=== PATIENT | female | born 1940 | race Caucasian/White ===

== ENCOUNTER → 2016-03-09 | Outpatient (CLI) | payer OTHER, BC ==
[~2016-03-09] MED LIST: ASPIRIN325 PO; ATORVASTATIN CA40 MG PO; BENICAR; BENICAR20 MG PO; GLUCOPHAGE500 MG PO; HYDROCODON-ACE1 EAC7 PO; LEVAQUIN 500 M500 MG PO; LIPITOR; NOHOMEMEDICATIONS; PLAVIX 75 MG TA75 MG PO; TOPROL XL50 MG PO; ZETIA10 MG PO
--- NOTE | ~2016-03-09 | 2DMMODE ---
[facility] [place] [address] 2 D/M-MODE ECHOCARDIOGRAM Name: ROCCO FRAGA Room #: REG [facility]#: [id number] Admission: 03/09/16 Attend Phys: Yuan Sandoval MD Discharge: Date of : 42 Date of Service: 03/09/16 0858 Report #: [id number] THIS REPORT FOR: //name// Transthoracic Echocardiography Ordering physician: Yuan Sandoval MD Referring physician: Adrienne Olea MD Chiller Hand: Emiliana Smith Indications/History: CAD. Hx: Stent, HTN, HLP, DM BP: 162 / HR: 58bpm Height: 65in Weight: 184.6lb 83 Study data: M-mode, complete 2D, complete spectral Doppler, and color Doppler. Location: Echo laboratory. Routine. Image quality was adequate. 2D measurements Normal Normal LVID ED 49.1mm 36-57 IVS ED 8.6mm 6-11 LVID ES 29.9mm 23-40 LVPW ED 8.9mm 6-11 LA volume 29ml/m2 16-28 AoRoot diam 34.2mm 21-37 index ED LVOT diameter 20mm 18-23 Findings: Left ventricle: The cavity size was normal. Wall thickness was normal. Systolic function was normal. The estimated ejection fraction was in the range of 55% to 60%. Wall motion was normal. Right ventricle: The cavity size was normal. Systolic function was normal. Right atrium: The atrium was normal in size. Left atrium: The atrium was normal in size. Volume index: 29ml/m2 (S). Aortic valve: Mildly sclerotic leaflets. Doppler: There was no stenosis. Mild regurgitation. Peak velocity: 155.5cm/s (S). [address] [address] 2 D/M-MODE ECHOCARDIOGRAM Name: ROCCO FRAGA Room #: REG [facility] M.R.#: [id number] Admission: 03/09/16 Attend Phys: Yuan Sandoval MD Discharge: Date of : 42 Date of Service: 03/09/16 0858 Report #: [id number] Mitral valve: Structurally normal valve. Doppler: There was no evidence for stenosis. Mild to moderate regurgitation. Peak E-wave velocity: 84.8cm/s. Peak gradient: 2.9mm Hg (D). Peak A-wave velocity: 136.5cm/s. Tricuspid valve: Structurally normal valve. Doppler: There was no evidence for stenosis. Trivial regurgitation. Regurgitant peak velocity: 244.5cm/s. Peak RV-RA gradient: 24mm Hg (S). Pulmonic valve: Structurally normal valve. Doppler: There was no evidence for stenosis. Trivial regurgitation. Pericardium: There was no pericardial effusion. Aorta: Aortic root: The aortic root was normal in size. Pulmonary artery: Systolic pressure was estimated to be 30mm Hg. Diastolic function: Doppler parameters are consistent with abnormal left ventricular relaxation (grade 1 diastolic dysfunction). Systemic veins: Inferior vena cava: The vessel was normal in size; the respirophasic diameter changes were in the normal range (= 50%). Conclusions 1. Left ventricle: Systolic function was normal. The estimated ejection fraction was in the range of 55% to 60%. Wall motion was normal. Doppler parameters are consistent with abnormal left ventricular relaxation (grade 1 diastolic dysfunction). 2. Aortic valve: Mildly sclerotic leaflets. There was no stenosis. Mild regurgitation. 3. Mitral valve: Structurally normal valve. Mild to moderate regurgitation. 4. Pulmonary arteries: Systolic pressure was estimated to be 30mm Hg. 5. Pericardium, extracardiac: There was no pericardial effusion. <ELECTRONICALLY SIGNED> By: Ga Mayberry MD, [facility] 03/09/1644 0858 3 Ga Mayberry MD, [facility] /elda
== END ==
LOC: CV 08:26
DX: I25.10 Atherosclerotic heart disease of native coronary artery without angina pectoris (principal); I10 Essential (primary) hypertension; E78.5 Hyperlipidemia, unspecified; E11.9 Type 2 diabetes mellitus without complications

== ENCOUNTER → 2017-04-01 | Outpatient (CLI) | payer OTHER, BC | LOC: NUC 03-01 14:07 | DX: I25.10 Atherosclerotic heart disease of native coronary artery without angina pectoris (principal); I10 Essential (primary) hypertension; E11.9 Type 2 diabetes mellitus without complications; E78.5 Hyperlipidemia, unspecified ==

== ENCOUNTER 2018-04-27 16:48 | Emergency (ER) | payer OTHER, BC ==
[~2018-04-27] VITALS: Ht 167.6 cm; Wt 81.7 kg
[2018-04-27 17:41] LABS: ABSOLUTE NEUTROPHILS 6.3 thou/uL (1.4-8.2); BASOPHILS 0.8 % (0.0-2.0); EOSINOPHILS 1.5 % (0.0-3.0); HEMATOCRIT 37.3 % (37.0-47.0); HEMOGLOBIN 12.3 gm/dL (12.0-15.0); LYMPHOCYTES 18.6 % (24.0-44.0); MCH 27.3 pg (26.0-34.0); MCV 82.7 fL (80.0-100.0); MONOCYTES 5.3 % (1.0-8.0); PLATELET COUNT 395 thou/uL (150-400); POLYS 73.8 % (36.0-66.0); RBC 4.51 mil/uL (4.20-5.00); RDW 14.9 % (10.5-14.5); WBC 8.5 thou/uL (4.0-11.0)
[2018-04-27 17:59] LABS: URINE BILIRUBIN NEGATIVE (Negative); URINE BLOOD 1+ (Negative); URINE CLARITY CLEAR; URINE COLOR YELLOW; URINE GLUCOSE-RANDOM* NEGATIVE (Negative); URINE KETONES NEGATIVE (Negative); URINE LEUKOCYTES 2+ (Negative); URINE NITRITE NEGATIVE (Negative); URINE PROTEIN (DIPSTICK) NEGATIVE (Negative); URINE SPECIFIC GRAVITY >= 1.030 (1.005-1.035); URINE UROBILINOGEN 0.2 E.U./dl (0.2-1.0)
[2018-04-27 18:00] LABS: CALCIUM 9.4 mg/dL (8.5-10.1); POTASSIUM 4.5 mmol/L (3.5-5.1)
[2018-04-27 18:05] LABS: ALBUMIN 3.8 g/dL (3.4-5.0); TOTAL BILIRUBIN 0.5 mg/dL (<0.1-1.0); TOTAL PROTEIN 7.7 g/dL (6.4-8.2)
[2018-04-27 18:09] LABS: CASTS None Seen /LPF (None Seen); CRYSTALS None Seen /LPF (None Seen); SQUAMOUS 4-10 Moderate /LPF (0-3); URINE RBC 0-2 Rare /HPF (0-2)
[2018-04-27] MEDS ORDERED: VENTOLIN HFA 1818 GM INH (18:48)
[2018-04-27] MEDS ORDERED: DOXYCYCLINE 10100 MG PO (18:48)
[2018-04-27 19:30] VITALS: BP 108/58
--- NOTE | 2018-04-28 07:54 | EKG ---
[place] [address] [facility] [place] [address] ELECTROCARDIOGRAM REPORT Name: ROCCO FRAGA Room #: DEP [facility]#: [id number] ������������������ Admission: 04/27/18 ������������������ Attend Phys: Discharge: 04/27/18 ������������������ Date of : 42 Report #: [id number] ����������������������������������������������������������������� [id number] THIS REPORT FOR: //name// [facility] ED Test Date: 2018-04-27 Test Time: 18:15:16 Pat Name: ROCCO FRAGA Department: Room: Gender: F Kennel Operator: : 1940 Requested By: Idania Burnett Order Number: [id number] MD: Ga Mayberry Measurements Intervals [place] Rate: 72 P: 20 FL: 149 QRS: -31 QRSD: 95 T: 9 QT: 404 QTc: 443 Interpretive Statements Sinus rhythm Left axis deviation Abnormal R-wave progression, late transition Compared to ECG 10/09/2012 13:58:13 Left-axis deviation now present Electronically Signed On 04-28-2018 7:54:09 CDT by Ga Mayberry [email or web address] ��������������������������������������������� <ELECTRONICALLY SIGNED> ���������������������������������������� By: Ga Mayberry MD, [facility] ��������������������������������������������� 04/28/18 0754 1815 181 Ga Mayberry MD, [facility] /EPI
== END 2018-04-27 19:31 | disposition home or self-care (01) ==
LOC: ER 16:48
PROVIDERS: Student in an Organized Health Care Education/Training Program
DX: J18.9 Pneumonia, unspecified organism (principal); N39.0 Urinary tract infection, site not specified; E11.9 Type 2 diabetes mellitus without complications; Z95.5 Presence of coronary angioplasty implant and graft

== ENCOUNTER → 2018-06-09 | Outpatient (CLI) | payer OTHER, BC ==
[~2018-06-09] MED LIST changes: +DOXYCYCLINE 10100 MG PO; +VENTOLIN HFA 1818 GM INH
== END ==
LOC: RAD 10:02
DX: J98.4 Other disorders of lung (principal); R93.89 Abnormal findings on diagnostic imaging of other specified body structures

== ENCOUNTER → 2018-11-07 | Outpatient (CLI) | payer OTHER, BC ==
--- NOTE | 2018-11-07 14:50 | 2DMMODE ---
[facility] [place] [address] 2 D/M-MODE ECHOCARDIOGRAM Name: ROCCO FRAGA Room #: REG [facility]#: [id number] Admission: 11/07/18 Attend Phys: Yuan Sandoval MD Discharge: Date of : 42 Report #: [id number] THIS REPORT FOR: //name// APPROVED REPORT Study performed: 11/07/2018 13:57:55 EXAM: Comprehensive 2D, Doppler, and color-flow Echocardiogram Patient Location: Out-Patient Status: routine BSA: 1.90 HR: 79 bpm BP: 118/60 mmHg Rhythm: NSR Other Information Study Quality: Good Indications CAD HTN 2D Dimensions RVDd: 26.76 mm IVSd: 11.07 (7-11mm) LVOT Diam: 20.41 (18-24mm) LVDd: 49.76 mm PWd: 9.50 (7-11mm) Ascending Ao: 38.50 (22-36mm) LVDs: 33.60 (25-40mm) Aortic Root: 35.24 mm Volumes Left Atrial Volume (Systole) Single Plane 4CH: 56.90 mL Single Plane 2CH: 58.43 mL LA ESV Index: 33.00 mL/m2 Aortic Valve AoV Peak Arnulfo.: 1.92 m/s AO Peak Gr.: 14.74 mmHg LVOT Max P.99 mmHg LVOT Max V: 1.22 m/s SHITAL Vmax: 2.09 cm2 Mitral Valve E/A Ratio: 0.5 MV Decel. Time: 347.71 ms [facility] [address] [address] 2 D/M-MODE ECHOCARDIOGRAM Name: ROCCO FRAGA Room #: REG CL [facility]#: [id number] Admission: 11/07/18 Attend Phys: Yuan Sandoval MD Discharge: Date of : 42 Report #: [id number] MV E Max Arnulfo.: 0.64 m/s MV A Arnulfo.: 1.17 m/s MV PHT: 100.84 ms IVRT: 87.66 ms Pulmonary Valve PV Peak Arnulfo.: 1.45 m/s PV Peak Gr.: 8.35 mmHg Pulmonary Vein P Vein S: 0.85 m/s P Vein D: 0.39 m/s P Vein S/D Ratio: 2.18 Tricuspid Valve TR Peak Arnulfo.: 2.77 m/s RAP Estimate: 5.00 mmHg TR Peak Gr.: 30.73 mmHg PA Pressure: 36.00 mmHg Left Ventricle The left ventricle is normal size. There is normal LV segmental wall motion. There is normal left ventricular wall thickness. Left ventricular systolic function is normal. LVEF is 55-60%. Mild diastolic dysfunction is present (impaired relaxation pattern). Right Ventricle The right ventricle is normal size. The right ventricular systolic function is normal. Atria Left atrium is at the upper limits of normal. The right atrium size is normal. Aortic Valve Aortic valve is calcified. Mild aortic regurgitation. There is no aortic valvular stenosis. Mitral Valve The mitral valve is normal in structure. Mild mitral regurgitation. Tricuspid Valve The tricuspid valve is normal in structure. Trace tricuspid regurgitation. Estimated PAP is 35-40mmHg. Pulmonic Valve [facility] [address] [place] [address] 2 D/M-MODE ECHOCARDIOGRAM Name: ROCCO FRAGA Room #: REG [facility]#: [id number] Admission: 11/07/18 Attend Phys: Yuan Sandoval MD Discharge: Date of : 42 Report #: [id number] The pulmonary valve is normal in structure. Trace pulmonic regurgitation. Great Vessels The aortic root is normal in size. The ascending aorta is mildly dilated at 3.9cm. IVC is normal in size and collapses >50% with inspiration. Pericardium There is no pericardial effusion. <Conclusion> The left ventricle is normal size. There is normal left ventricular wall thickness. Left ventricular systolic function is normal. Mild diastolic dysfunction is present (impaired relaxation pattern). The right ventricle is normal size. Left atrium is at the upper limits of normal. Aortic valve is calcified. Mild aortic regurgitation. Mild mitral regurgitation. Trace tricuspid regurgitation. Estimated PAP is 35-40mmHg. <ELECTRONICALLY SIGNED> By: Yuan Sandoval MD 11/07/181449 49 49 Yuan Sandoval MD /INF
== END ==
LOC: CV 12:34
DX: I08.0 Rheumatic disorders of both mitral and aortic valves (principal); I25.10 Atherosclerotic heart disease of native coronary artery without angina pectoris; I10 Essential (primary) hypertension

== ENCOUNTER → 2019-03-14 | Outpatient (CLI) | payer OTHER, BC | LOC: RAD 11:16 | DX: J84.9 Interstitial pulmonary disease, unspecified (principal); M06.9 Rheumatoid arthritis, unspecified; Z88.8 Allergy status to other drugs, medicaments and biological substances ==

== ENCOUNTER 2019-06-18 20:20 | Emergency (ER) | payer OTHER, BC ==
[~2019-06-18] VITALS: Ht 167.6 cm; Wt 73.5 kg
[2019-06-18 20:46] LABS: ABSOLUTE NEUTROPHILS 4.1 thou/uL (1.4-8.2); BASOPHILS 0.8 % (0.0-2.0); EOSINOPHILS 2.2 % (0.0-3.0); HEMATOCRIT 36.8 % (37.0-47.0); HEMOGLOBIN 12.3 gm/dL (12.0-15.0); LYMPHOCYTES 29.4 % (24.0-44.0); MCH 29.3 pg (26.0-34.0); MCHC 33.3 g/dL (28.0-37.0); MCV 88.2 fL (80.0-100.0); MONOCYTES 5.3 % (1.0-8.0); PLATELET COUNT 288 thou/uL (150-400); POLYS 62.3 % (36.0-66.0); RBC 4.18 mil/uL (4.20-5.00); WBC 6.6 thou/uL (4.0-11.0)
[2019-06-18 20:59] LABS: ANION GAP 7 mmol/L (7-16); BUN 25 mg/dL (7-18); CHLORIDE 99 mmol/L (98-107); CO2 27 mmol/L (21-32); CREATININE 1.1 mg/dL (0.6-1.0); GLUCOSE 127 mg/dL (74-106); POTASSIUM 4.4 mmol/L (3.5-5.1); SODIUM 133 mmol/L (136-145)
[2019-06-18 21:09] LABS: ALBUMIN 3.7 g/dL (3.4-5.0); SGOT 20 U/L (15-37); SGPT 25 U/L (30-65); TOTAL BILIRUBIN 0.5 mg/dL (<0.1-1.0); TROPONIN-I <0.06 ng/mL (<0.06)
[2019-06-18 22:28] VITALS: BP 145/56
--- NOTE | 2019-06-19 09:01 | EKG ---
[facility] [place] [address] ELECTROCARDIOGRAM REPORT Name: ROCCO FRAGA Room #: DEP [facility].#: [id number] Admission: 06/18/19 Attend Phys: Discharge: 06/18/19 Date of : 42 Report #: [id number] THIS REPORT FOR: cc: Adrienne Olea DNP, Mary E. DNP Couchonnal, Luis F. MD ~ THIS REPORT FOR: //name// [facility] ED Test Date: 2019-06-18 Test Time: 20:43:06 Pat Name: ROCCO FRAGA Department: Room: Gender: F Professional Programmer Analyst: karenutmirna : 1940 Requested By: Sterling Yanes Order Number: [id number] MD: Boogie Zuleta Measurements Intervals [place] Rate: 65 P: 18 UT: 139 QRS: -33 QRSD: 96 T: 25 QT: 416 QTc: 433 Interpretive Statements Sinus rhythm Left axis deviation Abnormal R-wave progression, late transition Compared to ECG 04/27/2018 18:15:16 No significant changes Electronically Signed On 06-19-2019 8:59:33 CDT by Boogie Zuleta [email or web address] <ELECTRONICALLY SIGNED> By: Boogie Zuleta MD 06/19/19 0859 42 42 Boogie Zuleta MD /EPI
== END 2019-06-18 22:28 | disposition home or self-care (01) ==
LOC: ER 20:20
PROVIDERS: Emergency Medicine
DX: R42 Dizziness and giddiness (principal); R06.02 Shortness of breath; R07.89 Other chest pain; R05 Cough; E11.9 Type 2 diabetes mellitus without complications; M06.9 Rheumatoid arthritis, unspecified; Z79.899 Other long term (current) drug therapy; Z79.82 Long term (current) use of aspirin; Z98.890 Other specified postprocedural states; Z98.41 Cataract extraction status, right eye; Z98.42 Cataract extraction status, left eye

== ENCOUNTER → 2019-06-26 | Outpatient (CLI) | payer OTHER, BC ==
[~2019-06-26] MED LIST changes: +ASA81BEC PO; +CLOPIDOGREL75 MG PO; +IMURAN 50MG TAB50 M1 PO; +LIPITOR 20 MG T20 M1 PO; +METFORMIN HCL500 M3 PO; +PROAIR HFA8.5 GM INH
== END ==
LOC: SJCVC 13:37
PROVIDERS: ATTEND Internal Medicine Cardiovascular Disease
DX: I49.1 Atrial premature depolarization (principal); I25.10 Atherosclerotic heart disease of native coronary artery without angina pectoris; E78.00 Pure hypercholesterolemia, unspecified; I10 Essential (primary) hypertension; E11.9 Type 2 diabetes mellitus without complications; R60.9 Edema, unspecified; M06.9 Rheumatoid arthritis, unspecified; M19.90 Unspecified osteoarthritis, unspecified site; Z82.49 Family history of ischemic heart disease and other diseases of the circulatory system; Z79.899 Other long term (current) drug therapy; Z79.84 Long term (current) use of oral hypoglycemic drugs

== ENCOUNTER → 2019-07-13 | Outpatient (CLI) | payer OTHER, BC ==
[~2019-07-13] MED LIST changes: -ASA81BEC PO; -CLOPIDOGREL75 MG PO; -IMURAN 50MG TAB50 M1 PO; -LIPITOR 20 MG T20 M1 PO; -METFORMIN HCL500 M3 PO; -PROAIR HFA8.5 GM INH
== END ==
LOC: SJCVCIMAG 06-30 13:17
DX: I25.10 Atherosclerotic heart disease of native coronary artery without angina pectoris (principal); I49.3 Ventricular premature depolarization; E11.9 Type 2 diabetes mellitus without complications; I10 Essential (primary) hypertension; E78.00 Pure hypercholesterolemia, unspecified; Z79.899 Other long term (current) drug therapy

== ENCOUNTER 2019-07-20 06:29 | Observation (INO) | payer OTHER, BC ==
[~2019-07-20] VITALS: Ht 167.6 cm; Wt 71.1 kg
--- NOTE | ~2019-07-20 | EKG ---
[facility] [place] [address] ELECTROCARDIOGRAM REPORT Name: ROCCO FRAGA Room #: 201-[facility] M.R.#: [id number] Admission: 07/20/19 Attend Phys: Yuan Sandoval MD Discharge: Date of : 42 Report #: [id number] THIS REPORT FOR: cc: Adrienne Olea DNP, Mary E. DNP Epiphany, Epiphany MD ~ THIS REPORT FOR: //name// [facility] Test Date: 2019-07-21 Test Time: 07:08:07 Pat Name: ROCCO FRAGA Department: Room: 201 Gender: F Scraper Tender: Rudy LYLES : 1940 Requested By: Yuan Sandoval Order Number: [id number] MD: Measurements Intervals [place] Rate: 68 P: 19 ME: 144 QRS: -32 QRSD: 95 T: 2 QT: 397 QTc: 423 Interpretive Statements Sinus rhythm Left axis deviation Compared to ECG 07/20/2019 10:05:32 Left-axis deviation now present Myocardial infarct finding no longer present [email or web address] By: 0708 7 Epiphany Epiphany, /EPI
[2019-07-20 07:15] VITALS: BP 122/55
[2019-07-20] MEDS ORDERED: PROAIR HFA8.5 GM INH (07:36)
[2019-07-20] MEDS ORDERED: ASA81BEC PO (07:37)
[2019-07-20] MEDS ORDERED: IMURAN 50MG TAB50 M1 PO (07:38)
[2019-07-20] MEDS ORDERED: LIPITOR 20 MG T20 M1 PO (07:38)
[2019-07-20] MEDS ORDERED: METFORMIN HCL500 M3 PO (07:39)
[2019-07-20] MEDS ORDERED: BENICAR20 MG PO (07:40)
--- NOTE | 2019-07-20 08:48 | EKG ---
[facility] [place] [address] ELECTROCARDIOGRAM REPORT Name: ROCCO FRAGA Room #: REG [facility]#: [id number] Admission: 07/20/19 Attend Phys: Yuan Sandoval MD Discharge: Date of : 42 Report #: [id number] THIS REPORT FOR: cc: Adrienne Olea DNP, Mary E. DNP Lundgren, Craig H. MD [facility] ~ THIS REPORT FOR: //name// [facility] Test Date: 2019-07-20 Test Time: 07:10:21 Pat Name: ROCCO FRAGA Department: Room: Gender: F Copy Camera Operator: [facility] : 1940 Requested By: Yuan Sandoval Order Number: [id number] MD: Ga Mayberry Measurements Intervals [place] Rate: 68 P: 22 MO: 142 QRS: -29 QRSD: 97 T: 10 QT: 412 QTc: 439 Interpretive Statements Sinus rhythm Poor R wave progression Compared to ECG 06/18/2019 20:43:06 No significant changes Electronically Signed On 07-20-2019 8:46:48 CDT by Ga Mayberry [email or web address] <ELECTRONICALLY SIGNED> By: Ga Mayberry MD, FACC 07/20/19 0846 0710 0710 Ga Mayberry MD, [facility] /EPI
--- NOTE | 2019-07-20 13:35 | CATHLAB ---
[facility] [place] [address] INVASIVE PROCEDURE REPORT Name: ROCCO FRAGA Room #: 201-P [facility] M.R.#: [id number] Admission: 07/20/19 Attend Phys: Yuan Sandoval MD Discharge: Date of : 42 Report #: [id number] THIS REPORT FOR: cc: Adrienne Olea DNP, Mary E. DNP Park, Jin S. MD ~ APPROVED REPORT Study performed: 07/20/2019 07:45:41 Patient Details Patient Status: Out-Patient Room #: The patient is a 78 year-old female Event Personnel Yuan Sandoval Gyn, Binh Porter RN RN, Arianna Porras RN RN, Dianna Chiu RTR, Arsalan Mejia Sherra RTR Monitor Procedures Performed Art Access - R femoral artery* Left Heart Cath w/or w/o Coronaries [id number] [facility] [address] Place w/wo Plasty Single PDA 134213 32397 Initial Mod Sed Same Phys/QHP Gr5y 144770 00802 Mod Sed Same Phys/QHP Ea 550112 Hemostasis w/ Mynx Indication Dyspnea, Positive stress test, Chest pain Risk Factors Hypercholesterolemia, Coronary Artery DiseaseHypertension, Diabetes Previous Procedures/Diagnoses Previous PCI Procedure Narrative The Right Groin^ was infiltrated with 1% Lidocaine subcutaneous anesthesia. A PINNACLE 4FR Sheath #[id number] sheath was inserted into the RFA^. Coronary angiography was performed using coronary diagnostic catheters. The right coronary system was accessed and visualized with a JR4 catheter. The left coronary system was accessed and visualized with a JL4 catheter. The left ventricle was accessed and visualized with a PIGTAIL catheter. Pre-demployment femoral angiogram was performed . Closure device was deployed with a 6 Fr MYNXGRIP 6/7F #[id number]. The patient tolerated the procedure well and [facility] [place] [address] INVASIVE PROCEDURE REPORT Name: ROCCO FRAGA ANDREA Room #: 201-P [facility] ..#: [id number] Admission: 07/20/19 Attend Phys: Yuan Sandoval MD Discharge: Date of : 41 Report #: [id number] there were no complications associated with the procedure. There was no hematoma. Intraoperative Conscious Sedation Sedation start time: 817 Case end Time: 929 Fentanyl 75 mcg Versed 1.5 mg Fluoro Time: 16.52 minutes Dose: DAP 59363.90 cGycm2 2032 mGy Contrast Type and Amount: Omnipaque 255 ml Coronary Angiography The patient's coronary anatomy is right dominant. Diagnostic Cath Left Main The left main artery is a large-caliber vessel, with no flow-limiting lesions. LAD The LAD has a stent in the proximal segment, widely patent with minimal restenosis. There is a mild to moderate lesion in the mid LAD. Diagonal 1 This is a small to moderate-sized caliber vessel, patent with no flow-limiting lesions. Circumflex Supplies 2 OM vessels. OM1 This is a small to moderate-sized caliber vessel, mild disease proximally. OM2 This is a moderate-sized caliber vessel, with a mild to moderate stenosis in the proximal segment, 30 to 40%. Right Coronary The RCA is a dominant vessel with mild disease in the proximal segment, 30%. R PDA There is a severe occlusion in the proximal segment, 80%. RPLV There is a mild stenosis in the proximal segment, 30%. Left Ventriculography Left Ventriculography was not performed. Ejection Fraction was 55-60% based off patient's Nuclear Cardiac Stress Test. An LVEDP was measured and there is no gradient across the outflow tract. Hemodynamics The aortic pressure is 131/56 mmHg with a mean of 46 mmHg. The left ventricular pressure is 123/6 mmHg with a mean of mmHg. The left ventricular end diastolic pressure is 17 mmHg. PCI Technique Lesion Percutaneous coronary intervention was performed on the right [facility] [address] [place] [address] INVASIVE PROCEDURE REPORT Name: ROCCO FRAGA ANDREA Room #: 201-P [facility] IN M.R.#: [id number] Admission: 07/20/19 Attend Phys: Yuan Sandoval MD Discharge: Date of : 42 Report #: [id number] posterior descending artery. The lesion stenosis prior to intervention was 80% with JERRI 3 flow. A VISTA 6FR JR 4 #[id number] Guide Catheter was used to engage the ostium. A Luge Wire .014 x 182CM #[id number] Interventional Guidewire was used to cross the lesion. BALLOON DILATION A Balloon catheter Euphora RX 2.0 x12 #[id number] was inserted and inflated up to 8.00atm for 26seconds. Additional Inflation: 8.00atm for 11seconds. Additional Inflation: 8.00atm for 11seconds. ADDITIONAL INFLATION AND TIME 16 JERRY/14 SECS, 16 JERRY/14 SECS STENT DEPLOYMENT A drug-eluting stent RESOLUTE MARTÍN RX 2.25 X 15 #[id number] was inserted and inflated up to 12.00atm for 18seconds. Final angiography reveals 5 % stenosis with JERRI 3 flow. Conclusion 1. Successful insertion of a drug-eluting stent into the PDA. 2. There is a patent stent in the proximal LAD. 3. There is mild to moderate disease in the mid LAD, OM 2 and proximal RCA. 4. Normal LV systolic function. 5. Recommend dual antiplatelet therapy and aggressive risk factor management. <ELECTRONICALLY SIGNED> By: Yuan Sandoval MD 07/20/19 1333 1333 1333 Yuan Sandoval MD /INF
[2019-07-20 13:45] VITALS: BP 106/49
--- NOTE | 2019-07-20 13:52 | NUR ---
REC PT FROM PRODUCT DEVELOPMENT MANAGER, RN GAVE ME BEDSIDE REPORT I'D BEEN AT LUNCH. PT IS A&0X4, AMBULATORY, HAS FINISHED RESTRICTIONS AND IVF. R GROIN SITE STENTED X1, MYNX, CDI, SOFT, NO BLEEDING. GAVE INTRO TO ROOM AND CALL LIGHT. OFFERED TO CALL FOR A PLATE OF FOOD SHE DECLINES; ADMISISON WILL BE DONE BY ANOTHER RN. SEE SEPARATE INTERVENTIONS FOR ASSESSMENTS
--- NOTE | 2019-07-20 16:09 | EKG ---
[facility] [place] [address] ELECTROCARDIOGRAM REPORT Name: ROCCO FRAGA Room #: 201-P [facility] M.R.#: [id number] Admission: 07/20/19 Attend Phys: Yuan Sandoval MD Discharge: Date of : 42 Report #: [id number] THIS REPORT FOR: cc: Adrienne Olea DNP, Mary E. DNP Couchonnal, Luis F. MD ~ THIS REPORT FOR: //name// [facility] Test Date: 2019-07-20 Test Time: 10:05:32 Pat Name: ROCCO FRAGA Department: Room: [facility] Gender: F Missile Inspector: [facility] : 1940 Requested By: Yuan Sandoval Order Number: [id number] MD: Boogie Zuleta Measurements Intervals [place] Rate: 68 P: 23 W[place]: 162 QRS: -38 QRSD: 99 T: 23 QT: 406 QTc: 432 Interpretive Statements Sinus rhythm Abnormal R-wave progression, late transition Inferior infarct, old Compared to ECG 07/20/2019 07:10:21 Myocardial infarct finding now present Poor R-wave progression no longer present Electronically Signed On 07-20-2019 16:06:58 CDT by Boogie Zuleta [email or web address] <ELECTRONICALLY SIGNED> By: Boogie Zuleta MD 07/20/19 1606 1005 1005 Boogie Zuleta MD /EPI
[2019-07-20 19:18] VITALS: BP 105/47
[2019-07-21 00:06] VITALS: BP 99/48
[2019-07-21 03:47] VITALS: BP 103/47
--- NOTE | 2019-07-21 04:40 | NUR ---
PT ALERT AND ORIENTED. VSS. RIGHT GROIN SITE S/P CARDIAC CATH CLEAN DRY AND INTACT. MINIMAL PAIN 3/10 REPORTED. NO HEMATOMA. NO NAUSEA OR CHEST PAIN REPORTED. SB/ST ON THE MONITOR. STEADY WITH AMBULATION. NO FURTHER CONCERNS. PT ANTICIPATE TO DC THIS AM. WILL CONTINUE TO FOLLOW POC.
[2019-07-21 05:30] LABS: HEMATOCRIT 31.3 % (37.0-47.0); HEMOGLOBIN 10.5 gm/dL (12.0-15.0); MCHC 33.4 g/dL (28.0-37.0); MCV 89.9 fL (80.0-100.0); RBC 3.48 mil/uL (4.20-5.00); RDW 18.1 % (10.5-14.5)
[2019-07-21 07:00] LABS: ALBUMIN 2.9 g/dL (3.4-5.0); CALCIUM 8.6 mg/dL (8.5-10.1); POTASSIUM 4.4 mmol/L (3.5-5.1); TOTAL BILIRUBIN 0.5 mg/dL (0.2-1.0); TOTAL PROTEIN 6.2 g/dL (6.4-8.2)
[2019-07-21 07:20] VITALS: BP 133/62
--- NOTE | 2019-07-21 08:20 | NUR ---
chart review, possible dc home today, had cath yesterday. cm visited with amanda via phone call, she denied "any needs, independent. my daughter will be picking me up today"/amanda. will cont following as needed for dc needs.
[2019-07-21] MEDS ORDERED: CLOPIDOGREL75 MG PO (09:02)
[2019-07-21 09:46] VITALS: BP 133/62
--- NOTE | 2019-07-21 09:49 | NUR ---
ASSUMED CARE AT SHIFT CHANGE. ALERT X4, DENIES SOB, DENIES CHEST PAIN, RIGHT GROIN SIGHT C/D/I, CARDIAC REHAB NURSE ROUNDED AND PROVIDED POST STENT EDUCATIONS. NSR/SB ON TELE. DC PAPERWORK REVIEWED. IV AND TELE REMOVE. DC HOME WITH SELF CARE.
== END 2019-07-21 10:20 | disposition home or self-care (01) ==
LOC: CATH 06:29 → 2N 13:33 → CATH 14:23 → 2N 07-21 10:20
PROVIDERS: ADMIT Internal Medicine Cardiovascular Disease
DX: I25.110 Atherosclerotic heart disease of native coronary artery with unstable angina pectoris (principal); E11.9 Type 2 diabetes mellitus without complications

== ENCOUNTER → 2019-08-02 | Outpatient (CLI) | payer OTHER, BC ==
[~2019-08-02] MED LIST changes: +ASA81BEC PO; +CLOPIDOGREL75 MG PO; +IMURAN 50MG TAB50 M1 PO; +LIPITOR 20 MG T20 M1 PO; +METFORMIN HCL500 M3 PO; +PROAIR HFA8.5 GM INH
== END ==
LOC: SJCVC 14:55
PROVIDERS: ATTEND Internal Medicine Cardiovascular Disease
DX: I49.1 Atrial premature depolarization (principal); R94.31 Abnormal electrocardiogram [ECG] [EKG]; I25.10 Atherosclerotic heart disease of native coronary artery without angina pectoris; I10 Essential (primary) hypertension; E78.00 Pure hypercholesterolemia, unspecified; R60.9 Edema, unspecified; M19.90 Unspecified osteoarthritis, unspecified site; M06.9 Rheumatoid arthritis, unspecified; E11.9 Type 2 diabetes mellitus without complications; Z98.61 Coronary angioplasty status; Z82.49 Family history of ischemic heart disease and other diseases of the circulatory system; Z79.82 Long term (current) use of aspirin; Z79.899 Other long term (current) drug therapy; Z79.84 Long term (current) use of oral hypoglycemic drugs

== ENCOUNTER → 2020-03-12 | Outpatient (CLI) | payer OTHER, BC | LOC: SJCVC 11:27 | PROVIDERS: ATTEND Internal Medicine Cardiovascular Disease | DX: R94.31 Abnormal electrocardiogram [ECG] [EKG] (principal); I25.10 Atherosclerotic heart disease of native coronary artery without angina pectoris; I10 Essential (primary) hypertension; E78.00 Pure hypercholesterolemia, unspecified; R60.9 Edema, unspecified; K21.9 Gastro-esophageal reflux disease without esophagitis; E11.9 Type 2 diabetes mellitus without complications; J84.9 Interstitial pulmonary disease, unspecified; R00.1 Bradycardia, unspecified; J32.9 Chronic sinusitis, unspecified; Z88.8 Allergy status to other drugs, medicaments and biological substances; Z79.82 Long term (current) use of aspirin; Z79.899 Other long term (current) drug therapy ==

== ENCOUNTER → 2020-09-27 | Outpatient (CLI) | payer OTHER, BC | LOC: SJCVCIMAG 09:17 | PROVIDERS: ATTEND Internal Medicine Cardiovascular Disease | DX: I08.3 Combined rheumatic disorders of mitral, aortic and tricuspid valves (principal); R00.1 Bradycardia, unspecified; I25.10 Atherosclerotic heart disease of native coronary artery without angina pectoris; E11.9 Type 2 diabetes mellitus without complications; I10 Essential (primary) hypertension; E78.5 Hyperlipidemia, unspecified ==

== ENCOUNTER → 2020-11-08 | Outpatient (CLI) | payer OTHER, BC | LOC: SJCVC 10:16 | PROVIDERS: ATTEND Internal Medicine Cardiovascular Disease | DX: E78.00 Pure hypercholesterolemia, unspecified (principal); I25.10 Atherosclerotic heart disease of native coronary artery without angina pectoris; I10 Essential (primary) hypertension; E11.9 Type 2 diabetes mellitus without complications; K21.9 Gastro-esophageal reflux disease without esophagitis; E66.9 Obesity, unspecified; Z79.84 Long term (current) use of oral hypoglycemic drugs; Z79.899 Other long term (current) drug therapy; Z79.82 Long term (current) use of aspirin; Z88.8 Allergy status to other drugs, medicaments and biological substances ==

== ENCOUNTER 2021-04-01 14:28 | Inpatient (IN) | payer OTHER, BC ==
[~2021-04-01] VITALS: Ht 167.6 cm; Wt 68.5 kg
[2021-04-01 14:34] VITALS: BP 136/66
[2021-04-01 15:01] LABS: URINE BILIRUBIN NEGATIVE (Negative); URINE BLOOD 2+ (Negative); URINE CLARITY CLEAR; URINE COLOR YELLOW; URINE GLUCOSE-RANDOM* 1+ (Negative); URINE KETONES NEGATIVE (Negative); URINE LEUKOCYTES-REFLEX NEGATIVE (Negative); URINE NITRITE-REFLEX NEGATIVE (Negative); URINE PROTEIN (DIPSTICK) NEGATIVE (Negative)
[2021-04-01 15:03] LABS: BASOPHILS 0.4 % (0.0-2.0); EOSINOPHILS 0.8 % (0.0-3.0); HEMATOCRIT 36.8 % (37.0-47.0); HEMOGLOBIN 12.4 gm/dL (12.0-15.0); LYMPHOCYTES 12.3 % (24.0-44.0); MCH 31.1 pg (26.0-34.0); MCHC 33.8 g/dL (28.0-37.0); MCV 92.1 fL (80.0-100.0); MONOCYTES 10.3 % (1.0-8.0); PLATELET COUNT 282 thou/uL (150-400); POLYS 76.2 % (36.0-66.0); RBC 3.99 mil/uL (4.20-5.00); RDW 14.7 % (10.5-14.5); WBC 7.8 thou/uL (4.0-11.0)
[2021-04-01 15:05] LABS: CALCIUM 9.2 mg/dL (8.5-10.1); CREATININE 0.8 mg/dL (0.6-1.0); POTASSIUM 3.8 mmol/L (3.5-5.1)
[2021-04-01 15:10] LABS: ALBUMIN 3.1 g/dL (3.4-5.0); TOTAL PROTEIN 6.6 g/dL (6.4-8.2)
[2021-04-01 15:12] LABS: SQUAMOUS 4-10 Moderate /LPF (0-3)
[2021-04-01 15:13] LABS: BACTERIA-REFLEX 1-9 Few /HPF (None Seen); CASTS None Seen /LPF (None Seen); MUCUS 0-3 Light strn/LPF (None Seen); URINE RBC 3-10 Few /HPF (NONE SEEN); URINE WBC-REFLEX None Seen /HPF (0-5)
[2021-04-01 15:14] LABS: CRYSTALS None Seen /LPF (None Seen)
[2021-04-02 05:51] LABS: HEMATOCRIT 34.3 % (37.0-47.0); HEMOGLOBIN 11.4 gm/dL (12.0-15.0); MCH 30.7 pg (26.0-34.0); MCHC 33.2 g/dL (28.0-37.0); MCV 92.5 fL (80.0-100.0); RBC 3.71 mil/uL (4.20-5.00); RDW 14.9 % (10.5-14.5); WBC 7.8 thou/uL (4.0-11.0)
[2021-04-02 06:44] LABS: ALBUMIN 2.7 g/dL (3.4-5.0); CALCIUM 8.3 mg/dL (8.5-10.1); CREATININE 0.7 mg/dL (0.6-1.0); POTASSIUM 4.1 mmol/L (3.5-5.1); TOTAL BILIRUBIN 0.8 mg/dL (0.2-1.0); TOTAL PROTEIN 5.8 g/dL (6.4-8.2)
[2021-04-02 08:18] VITALS: BP 146/72
[2021-04-02 13:41] VITALS: BP 151/58
[2021-04-02 14:13] VITALS: BP 157/75
[2021-04-02 20:20] VITALS: BP 132/63
[2021-04-03 05:09] LABS: HEMATOCRIT 30.9 % (37.0-47.0); HEMOGLOBIN 10.5 gm/dL (12.0-15.0); MCH 31.4 pg (26.0-34.0); MCV 92.4 fL (80.0-100.0); RBC 3.34 mil/uL (4.20-5.00); RDW 14.3 % (10.5-14.5); WBC 5.2 thou/uL (4.0-11.0)
[2021-04-03 05:22] LABS: ALBUMIN 2.5 g/dL (3.4-5.0); CALCIUM 8.2 mg/dL (8.5-10.1); CREATININE 0.7 mg/dL (0.6-1.0); POTASSIUM 3.9 mmol/L (3.5-5.1); TOTAL BILIRUBIN 0.8 mg/dL (0.2-1.0); TOTAL PROTEIN 5.4 g/dL (6.4-8.2)
[2021-04-03 15:04] VITALS: BP 138/72
[2021-04-03 17:48] VITALS: BP 141/71
[2021-04-03 19:04] VITALS: BP 144/54
[2021-04-04 05:27] LABS: ABSOLUTE NEUTROPHILS 4.8 thou/uL (1.4-8.2); BASOPHILS 0.2 % (0.0-2.0); HEMATOCRIT 33.4 % (37.0-47.0); HEMOGLOBIN 11.6 gm/dL (12.0-15.0); LYMPHOCYTES 10.8 % (24.0-44.0); MCH 31.6 pg (26.0-34.0); MCHC 34.7 g/dL (28.0-37.0); MCV 91.1 fL (80.0-100.0); MONOCYTES 5.5 % (1.0-8.0); PLATELET COUNT 220 thou/uL (150-400); POLYS 83.5 % (36.0-66.0); RBC 3.67 mil/uL (4.20-5.00); RDW 13.8 % (10.5-14.5); WBC 5.7 thou/uL (4.0-11.0)
[2021-04-04 05:47] LABS: ALBUMIN 2.7 g/dL (3.4-5.0); CALCIUM 8.4 mg/dL (8.5-10.1); CREATININE 0.7 mg/dL (0.6-1.0); POTASSIUM 4.2 mmol/L (3.5-5.1); TOTAL BILIRUBIN 2.5 mg/dL (0.2-1.0); TOTAL PROTEIN 5.9 g/dL (6.4-8.2)
[2021-04-04 07:45] VITALS: BP 136/72
[2021-04-04 14:30] VITALS: BP 163/86
--- NOTE | 2021-04-04 15:03 | P ---
[facility] [place] [address] PROCEDURE REPORT Name: ROCCO FRAGA Room #: 441-P ADM IN M.R.#: [id number] Admission: 04/01/21 Attend Phys: Angel Nichole DO Discharge: Date of : 42 Report #: [id number] THIS REPORT FOR: cc: Dawna Burrell MD, Nora P. MD McElhinney, Christian C. MD ~ cc: Jorge Luis Vargas MD, Angel Nichole MD DATE OF SERVICE: 04/03/2021 PROCEDURE PERFORMED: ERCP with sphincterotomy and balloon sweeps. HISTORY OF PRESENT ILLNESS: The patient is a 80-year-old female who was admitted on 04/01/2021 for abdominal pain, nausea, vomiting, was noted to have elevated liver function tests and initially underwent a CT scan of the abdomen and pelvis that showed mild peripancreatic inflammatory changes suggestive of acute pancreatitis, reactive duodenal wall thickening was also noted in the first and second portion. Cholelithiasis noted. The patient's lipase on admission was 936, today is 232. She then underwent an MRCP yesterday, which showed mild dilation of the common bile duct with abrupt cutoff near the ampulla, possibly secondary to choledocholithiasis. The main pancreatic duct was normal in caliber. Findings of acute pancreatitis again noted. Plan is for ERCP today. DESCRIPTION OF PROCEDURE: The risks and benefits of the procedure were explained to the patient, those risks including but not limited to bleeding, perforation and the risk of sedation as well as potential risk for post-ERCP pancreatitis. She understood these risks and gave informed consent. The procedure was performed in the operating room under general anesthesia. The patient was given 2 grams of Ancef prior to the procedure. He was also given 50 mg indomethacin rectal suppository. Next, using a standard Olympus ERCP scope, the scope was placed in the patient's mouth and advanced under direct vision through the esophagus, stomach and into the second portion, at which point, the major papilla was identified. Next, using a [employer] 0.025 dome cone-tipped catheter, initially the pancreatic duct was cannulated. Eventually, I was able to cannulate the common bile duct and obtain a cholangiogram. No obvious filling defects were noted. There was a smooth taper at the end of the common bile duct. The common bile duct was mildly dilated. The intrahepatics were normal. The stones were noted within the gallbladder. At this point, a guidewire was advanced into the intrahepatic ducts and next, a sphincterotomy was performed without difficulty. It was at this point, the first evidence of bile flow was noted after the sphincterotomy. At this point, the sphincterotome was removed and a balloon catheter was then advanced over the guidewire. I then performed several balloon sweeps. On the 1st sweep, there did appear to be some debris that was removed, but no obvious stone was seen, again several balloon sweeps were performed. Then, a balloon occlusion cholangiogram was performed, [address] [address] PROCEDURE REPORT Name: ROCCO FRAGA ANDREA Room #: 441-P [facility] M.R.#: [id number] Admission: 04/01/21 Attend Phys: Angel Nichole, Discharge: Date of : 42 Report #: [id number] which showed no filling defects. Good bile drainage was noted at this time. At this point, the wire and balloon catheter were removed. The scope was then withdrawn and the procedure terminated. The patient tolerated the procedure well. IMPRESSION: 1. Mildly dilated common bile duct. 2. No obvious stone; however, debris was removed after sphincterotomy. The patient also could have had a papillary stenosis, giving a similar picture on recent MRCP, also consider the possibility of the patient passed the stone. RECOMMENDATIONS: 1. Observe, status post ERCP. 2. Plan is for laparoscopic cholecystectomy in the near future. Thank you for allowing me to participate in her care. <ELECTRONICALLY SIGNED> By: Genaro Le MD 04/04/21 1503 1430 2035 Genaro Le MD /nt
[2021-04-04 20:08] VITALS: BP 137/61
[2021-04-05 08:34] VITALS: BP 140/62
[2021-04-05 15:10] LABS: HEMATOCRIT 33.5 % (37.0-47.0); HEMOGLOBIN 11.1 gm/dL (12.0-15.0); MCV 93.7 fL (80.0-100.0); RBC 3.57 mil/uL (4.20-5.00); RDW 15.1 % (10.5-14.5); WBC 8.1 thou/uL (4.0-11.0)
[2021-04-05 15:27] LABS: ALBUMIN 2.6 g/dL (3.4-5.0); DIRECT BILIRUBIN 3.4 mg/dL (<0.1-0.2); TOTAL PROTEIN 5.6 g/dL (6.4-8.2)
[2021-04-05 16:11] VITALS: BP 113/80
[2021-04-05 20:34] VITALS: BP 153/75
[2021-04-06 05:53] LABS: HEMATOCRIT 31.4 % (37.0-47.0); HEMOGLOBIN 10.5 gm/dL (12.0-15.0); MCH 31.2 pg (26.0-34.0); MCHC 33.6 g/dL (28.0-37.0); MCV 92.9 fL (80.0-100.0); RBC 3.38 mil/uL (4.20-5.00); RDW 14.6 % (10.5-14.5); WBC 6.8 thou/uL (4.0-11.0)
[2021-04-06 06:14] LABS: CALCIUM 8.4 mg/dL (8.5-10.1); CREATININE 0.7 mg/dL (0.6-1.0); POTASSIUM 3.4 mmol/L (3.5-5.1)
[2021-04-06 08:00] VITALS: BP 104/59
[2021-04-06 13:03] LABS: ALBUMIN 2.4 g/dL (3.4-5.0); CALCIUM 8.3 mg/dL (8.5-10.1); CREATININE 0.7 mg/dL (0.6-1.0); POTASSIUM 3.5 mmol/L (3.5-5.1); TOTAL BILIRUBIN 1.8 mg/dL (0.2-1.0); TOTAL PROTEIN 4.9 g/dL (6.4-8.2)
[2021-04-06 16:30] VITALS: BP 132/95
[2021-04-06 16:46] LABS: ALBUMIN 2.7 g/dL (3.4-5.0); TOTAL BILIRUBIN 1.4 mg/dL (0.2-1.0); TOTAL PROTEIN 5.8 g/dL (6.4-8.2)
[2021-04-06 21:09] VITALS: BP 140/44
[2021-04-07 06:16] LABS: HEMATOCRIT 31.2 % (37.0-47.0); HEMOGLOBIN 10.4 gm/dL (12.0-15.0); MCHC 33.4 g/dL (28.0-37.0); MCV 92.7 fL (80.0-100.0); RBC 3.36 mil/uL (4.20-5.00); RDW 14.9 % (10.5-14.5); WBC 5.9 thou/uL (4.0-11.0)
[2021-04-07 06:47] LABS: ALBUMIN 2.4 g/dL (3.4-5.0); DIRECT BILIRUBIN 0.6 mg/dL (<0.1-0.2); TOTAL BILIRUBIN 1.1 mg/dL (0.2-1.0); TOTAL PROTEIN 5.2 g/dL (6.4-8.2)
[2021-04-07 07:36] VITALS: BP 151/77
[2021-04-07 15:20] VITALS: BP 134/85
[2021-04-08 08:00] VITALS: BP 170/93
[2021-04-08 10:14] VITALS: BP 170/93
--- NOTE | 2021-04-09 16:06 | PATH ---
[facility] [address] [place] [address] PATHOLOGY RPT PROCEDURE Name: ROCCO FRAGA Room #: 441-P [facility] IN M.R.#: [id number] Admission: 04/01/21 Date of : 42 Discharge: 04/08/21 Report #: [id number] Path Case #: [id number] [facility] Accession Number: [id number] . 01 Material submitted: . gallbladder - GALLBLADDER AND CONTENTS . 01 Clinical history: . ACUTE PANCREATITIS WITH CHOLELITHIASIS LAPAROSCOPIC CHOLECYSTECTOMY . 02 Diagnosis: Gallbladder (cholecystectomy): - Subacute and chronic cholecystitis with cholelithiasis. (JONNIE:monika; 04/08/2021) QMS 04/08/2021 1257 Local . 02 Comment: We find no evidence of malignancy in any of the tissue examined. (JONNIE:monika; 04/08/2021) . 02 Electronically signed: . Chico Andrade MD, Pathologist NPI- [id number] . 01 Gross description: . Fixative: Formalin Labeled: Gallbladder and contents Specimen received: Previously disrupted gallbladder Dimensions: 6.5 x 3.5 x 1.7 cm Serosa: Light lester-pink and adipose covered, with light lester-yellow to light green, shaggy and cauterized adventatia Lymph node: None identified Mucosa: Light lseter-yellow to dark lester-green and velvety Average wall thickness: 0.3 cm Calculi: Present, multiple calculi found within fundus body and neck measuring 1.3 x 0.9 x 0.3 cm in aggregate dimensions. Abnormalities: Diffusely thickened wall . A1- Chicken Cutter body, fundus, and the cystic duct margin. ([facility]; 04/07/2021) [facility] [place]/[facility] 04/07/2021 1226 Local . 02 Pathologist provided ICD-10: K80.00, K80.10 . 02 CPT . [place] [id number] PATHOLOGY RPT PROCEDURE Name: ROCCO FRAGA Room #: 441-P [facility] IN [facility].#: [id number] Admission: 04/01/21 Date of : 42 Discharge: 04/08/21 Report #: [id number] Path Case #: [id number] Specimen Comment: A courtesy copy of this report has been sent to [phone] Specimen Comment: [phone], Specimen Comment: Report sent to , DR GALINDO / DR PENA Performed at: 01 [facility] [address] [id number] MD Evangelist Acuña MD Phone: [phone] Performed at: 02 [facility] [address] [id number] MD Chico Andrade MD Phone: [phone]
--- NOTE | 2021-04-11 07:15 | O ---
[facility] [place] [address] OPERATIVE REPORT Name: ROCCO FRAGA Room #: 441-P [facility] IN M.R.#: [id number] Admission: 04/01/21 Attend Phys: Angel Nichole DO Discharge: 04/08/21 Date of : 42 Report #: [id number] THIS REPORT FOR: cc: Dawna Burrell MD, Nora P. MD Patterson,Sharif Salgado MD ~ DATE OF SERVICE: 04/04/2021 PREOPERATIVE DIAGNOSIS: Gallstone pancreatitis. POSTOPERATIVE DIAGNOSIS: Gallstone pancreatitis. OPERATION: Laparoscopic cholecystectomy. SURGEON: Sharif Villagran MD ANESTHESIA: General. ESTIMATED BLOOD LOSS: Minimal. SPECIMENS: Gallbladder. DESCRIPTION OF PROCEDURE: After informed consent was obtained, the patient was brought to the operating room and placed supine. SCDs were placed and working, preoperative antibiotics were administered, general anesthesia was induced. The abdomen was prepped and draped in the usual sterile fashion. A 10 mm incision was made below the umbilicus. Fascia was incised and a trocar was placed. Pneumoperitoneum was established. Three right upper quadrant 5 mm ports were placed. Gallbladder was grasped at the fundus and retracted cephalad. Infundibulum was grasped and retracted laterally. I dissected out the cystic duct and cystic artery. Cystic plate was fully identified. Cystic duct and artery were clipped and ligated leaving one clip on the remaining artery and the duct. Gallbladder was then taken off the liver bed with electrocautery. It was placed into an Endopouch and removed. There was oozing from the liver bed. Therefore, I packed this area with FloSeal and Surgicel. There was excellent hemostasis after that. The fascia was closed with a [id number] 0 Vicryl. Skin was closed with 4-0 Monocryl. Incisions were dressed with Steri-Strips. COMPLICATIONS: None. [facility] [address] [place] [address] OPERATIVE REPORT Name: ROCCO FRAGA Room #: [facility].#: [id number] Admission: 04/01/21 Attend Phys: Angel Nichole DO Discharge: 04/08/21 Date of : 42 Report #: [id number] DISPOSITION: The patient was taken to recovery in satisfactory condition. <ELECTRONICALLY SIGNED> By: Sharif Villagran MD 04/11/21 0715 1414 1519 Sharif Villagran MD /nt
== END 2021-04-08 13:31 | disposition home health service (06) | DRG 418 ==
LOC: ER 14:28 → 4S 17:32 → EROBS 17:32 → 4S 04-02 13:48
PROVIDERS: Emergency Medicine; Nurse Practitioner; Specialist; Surgery; ADMIT Pediatrics; ATTEND Pediatrics
PROC: 0FC98ZZ Extirpation of Matter from Common Bile Duct, Via Natural or Artificial Opening Endoscopic (ICD-10-PCS; principal; 2021-04-03)
PROC: 0F798ZZ Dilation of Common Bile Duct, Via Natural or Artificial Opening Endoscopic (ICD-10-PCS; principal; 2021-04-03)
PROC: 0FT44ZZ Resection of Gallbladder, Percutaneous Endoscopic Approach (ICD-10-PCS; 2021-04-04)
DX: K85.10 Biliary acute pancreatitis without necrosis or infection (principal); D84.9 Immunodeficiency, unspecified; K80.70 Calculus of gallbladder and bile duct without cholecystitis without obstruction; E11.9 Type 2 diabetes mellitus without complications; M06.9 Rheumatoid arthritis, unspecified; E78.5 Hyperlipidemia, unspecified; R74.01 Elevation of levels of liver transaminase levels; I25.10 Atherosclerotic heart disease of native coronary artery without angina pectoris; Z20.822 Contact with and (suspected) exposure to COVID-19; Z95.5 Presence of coronary angioplasty implant and graft; Z98.42 Cataract extraction status, left eye; Z98.41 Cataract extraction status, right eye; Z82.49 Family history of ischemic heart disease and other diseases of the circulatory system
CPT/HCPCS: 10195; 50010; 50101; 50411; 50555; 50900; 51297; 51489; 52245; 52265; 52266; 53307; 53312; 53314; 56462; 56525; 56526; 58567; 58574; 62110; 62900; 70005

== ENCOUNTER 2021-04-11 13:57 | Emergency (ER) | payer OTHER, BC ==
[~2021-04-11] VITALS: Ht 167.6 cm; Wt 68.0 kg
[2021-04-11 15:16] LABS: ABSOLUTE NEUTROPHILS 8.6 thou/uL (1.4-8.2); BASOPHILS 0.5 % (0.0-2.0); EOSINOPHILS 1.6 % (0.0-3.0); HEMATOCRIT 35.2 % (37.0-47.0); HEMOGLOBIN 11.7 gm/dL (12.0-15.0); LYMPHOCYTES 7.6 % (24.0-44.0); MCH 30.9 pg (26.0-34.0); MCHC 33.1 g/dL (28.0-37.0); MCV 93.4 fL (80.0-100.0); MONOCYTES 5.4 % (1.0-8.0); PLATELET COUNT 355 thou/uL (150-400); POLYS 84.9 % (36.0-66.0); RBC 3.77 mil/uL (4.20-5.00); RDW 14.8 % (10.5-14.5); WBC 10.1 thou/uL (4.0-11.0)
[2021-04-11 15:21] LABS: CALCIUM 9.3 mg/dL (8.5-10.1); CREATININE 0.8 mg/dL (0.6-1.0); POTASSIUM 4.1 mmol/L (3.5-5.1)
[2021-04-11 16:28] LABS: URINE BILIRUBIN NEGATIVE (Negative); URINE BLOOD NEGATIVE (Negative); URINE CLARITY CLEAR; URINE COLOR YELLOW; URINE GLUCOSE-RANDOM* NEGATIVE (Negative); URINE KETONES NEGATIVE (Negative); URINE LEUKOCYTES-REFLEX NEGATIVE (Negative); URINE NITRITE-REFLEX NEGATIVE (Negative); URINE PROTEIN (DIPSTICK) NEGATIVE (Negative); URINE UROBILINOGEN >= 8.0 E.U./dl (0.2-1.0)
[2021-04-11 18:22] VITALS: BP 132/63
--- NOTE | 2021-04-12 09:51 | EKG ---
[facility] [place] [address] ELECTROCARDIOGRAM REPORT Name: ROCCO FRAGA Room #: [facility]#: [id number] Admission: 04/11/21 Attend Phys: Discharge: 04/11/21 Date of : 42 Report #: [id number] [facility] ED Test Date: 2021-04-11 Test Time: 14:25:31 Pat Name: ROCCO FRAGA Department: Room: Gender: F Palliative Nurse: : 1940 Requested By: Ubaldo Delarosa Order Number: [id number] MD: Yuan Sandoval Measurements Intervals [place] Rate: 70 P: 15 AK: 131 QRS: -43 QRSD: 90 T: 11 QT: 411 QTc: 444 Interpretive Statements Sinus rhythm Atrial premature complexes Abnormal R-wave progression, late transition Consider left ventricular hypertrophy Compared to ECG 07/21/2019 07:08:07 Atrial premature complex(es) now present Left-axis deviation no longer present Electronically Signed On 04-12-2021 9:51:22 MEDIA REPORTER by Yuan Sandoval [email or web address] <ELECTRONICALLY SIGNED> By: Yuan Sandoval MD 04/12/21 0951 1425 1425 Yuan Sandoval MD /CASSANDRA
== END 2021-04-11 18:23 | disposition home or self-care (01) ==
LOC: ER 13:57
PROVIDERS: Student in an Organized Health Care Education/Training Program
DX: R42 Dizziness and giddiness (principal); R41.0 Disorientation, unspecified; E78.5 Hyperlipidemia, unspecified; E11.9 Type 2 diabetes mellitus without complications; M06.9 Rheumatoid arthritis, unspecified